=== PATIENT | female | born 1960 | race Caucasian/White ===

== ENCOUNTER 2017-11-06 18:47 | Inpatient (IN) | payer OTHER ==
[~2017-11-06] VITALS: Ht 157.5 cm; Wt 101.8 kg
[2017-11-06] MEDS ORDERED: ABILIFY5 M1 PO (20:20)
[2017-11-06 20:48] LABS: BASOPHIL % 0.2 % (0-2); PLATELET COUNT 229 x10^3mcL (130-400); RED CELL DISTRIBUTION WIDTH 13.9 % (11.5-14.5)
[2017-11-06 20:50] LABS: CALCIUM 8.6 mg/dL (8.5-10.1); CARBON DIOXIDE 25.1 mmol/L (21-32); CHLORIDE SERUM 106 mmol/L (98-107); CREATININE SERUM 0.7 mg/dL (0.6-1.0); GFR1 > 60 mL/min; GLUCOSE SERUM 113 mg/dL (74-106); POTASSIUM SERUM 3.6 mmol/L (3.5-5.1); SODIUM SERUM 136 mmol/L (136-145)
[2017-11-06 20:55] LABS: ALBUMIN 3.4 g/dL (3.4-5.0); ALKALINE PHOSPHATASE 94 U/L (46-116); ALT/SGPT 73 U/L (14-59); AST/SGOT 49 U/L (15-37); BILIRUBIN TOTAL 1.2 mg/dL (0.20-1.00); TOTAL PROTEIN, SERUM 7.3 g/dL (6.4-8.2)
[2017-11-06] MEDS ORDERED: HYDROCHLOROTH12.5 M2 (22:42)
[2017-11-06] MEDS ORDERED: METOPROLOL SUCC25 M2 (22:42)
[2017-11-06 23:48] LABS: T3 TOTAL 1.21 ng/mL
[2017-11-06 23:49] LABS: FREE T4 1.07 ng/dL (0.76-1.46); FREE THYROXINE INDEX 3.5 ug/dL (1.4-4.5); T4(THYROXINE) 11.4 ug/dL (4.7-13.3)
[2017-11-06] MEDS ORDERED: PERCOCET1 TAB PO (23:56)
[2017-11-07 00:01] VITALS: BP 172/84
[2017-11-07 00:01] LABS: CHOLESTEROL/HDL RATIO 4.2; MAGNESIUM 2.1 mg/dL (1.8-2.4); PHOSPHOROUS 3.2 mg/dL (2.5-4.9)
[2017-11-07 00:07] VITALS: Ht 157.5 cm; Wt 101.8 kg
[2017-11-07 00:59] LABS: UA SPECIFIC GRAVITY 1.025 (1.005-1.035); microscopic required? YES; urine erythrocyte TRACE (NEGATIVE)
[2017-11-07 01:05] LABS: AMPHETAMINE QUAL UR NONE DETECTED (NEG <=1000)
[2017-11-07 05:38] VITALS: BP 153/81
[2017-11-07 08:10] LABS: BASOPHIL % 0.2 % (0-2); PLATELET COUNT 218 x10^3mcL (130-400); RED CELL DISTRIBUTION WIDTH 14.1 % (11.5-14.5)
[2017-11-07 08:38] LABS: CALCIUM 8.8 mg/dL (8.5-10.1); CARBON DIOXIDE 26.9 mmol/L (21-32); CHLORIDE SERUM 105 mmol/L (98-107); CREATININE SERUM 0.9 mg/dL (0.6-1.0); GFR1 > 60 mL/min; GLUCOSE SERUM 148 mg/dL (74-106); MAGNESIUM 2.4 mg/dL (1.8-2.4); PHOSPHOROUS 3.4 mg/dL (2.5-4.9); POTASSIUM SERUM 4.5 mmol/L (3.5-5.1); SODIUM SERUM 141 mmol/L (136-145)
[2017-11-07 08:44] VITALS: BP 123/78
[2017-11-07 17:49] VITALS: BP 148/73
[2017-11-07 20:48] VITALS: BP 157/88
[2017-11-08 05:29] VITALS: BP 133/68
[2017-11-08 06:15] LABS: BASOPHIL % 0.2 % (0-2); PLATELET COUNT 237 x10^3mcL (130-400); RED CELL DISTRIBUTION WIDTH 14.1 % (11.5-14.5)
[2017-11-08 06:17] LABS: CALCIUM 8.8 mg/dL (8.5-10.1); CARBON DIOXIDE 28.7 mmol/L (21-32); CHLORIDE SERUM 105 mmol/L (98-107); CREATININE SERUM 0.8 mg/dL (0.6-1.0); GFR1 > 60 mL/min; GLUCOSE SERUM 119 mg/dL (74-106); MAGNESIUM 2.2 mg/dL (1.8-2.4); PHOSPHOROUS 3.5 mg/dL (2.5-4.9); POTASSIUM SERUM 4.4 mmol/L (3.5-5.1); SODIUM SERUM 141 mmol/L (136-145)
[2017-11-08 09:02] VITALS: BP 135/60
[2017-11-08 17:04] VITALS: BP 129/53
[2017-11-08 21:14] VITALS: BP 118/56
[2017-11-09 05:29] VITALS: BP 117/66
[2017-11-09 08:26] LABS: MAGNESIUM 1.9 mg/dL (1.8-2.4); PHOSPHOROUS 3.2 mg/dL (2.5-4.9)
[2017-11-09 09:48] VITALS: BP 155/75
[2017-11-09 15:31] VITALS: BP 155/75
[2017-11-09] MEDS ORDERED: NEU300 PO (16:01)
[2017-11-09] MEDS ORDERED: NOR10T PO (16:01)
[2017-11-09] MEDS ORDERED: FLE10 PO (16:02)
[2017-11-09] MEDS ORDERED: ZOFI IV (16:02)
== END 2017-11-09 19:29 | disposition home or self-care (01) | DRG 537 ==
LOC: ED 18:47 → DU 22:30 → MU 22:30 → DU 23:45 → MU 23:48
PROVIDERS: Emergency Medicine; Family Medicine
DX: S76.912A Strain of unspecified muscles, fascia and tendons at thigh level, left thigh, initial encounter (principal); Z68.42 Body mass index [BMI] 45.0-49.9, adult; S76.911A Strain of unspecified muscles, fascia and tendons at thigh level, right thigh, initial encounter; S83.512A Sprain of anterior cruciate ligament of left knee, initial encounter; M51.26 Other intervertebral disc displacement, lumbar region; I10 Essential (primary) hypertension; R74.0 Nonspecific elevation of levels of transaminase and lactic acid dehydrogenase [LDH]; E80.6 Other disorders of bilirubin metabolism; E78.5 Hyperlipidemia, unspecified; E66.01 Morbid (severe) obesity due to excess calories; W18.39XA Other fall on same level, initial encounter; Y93.E1 Activity, personal bathing and showering; Y92.012 Bathroom of single-family (private) house as the place of occurrence of the external cause; D72.829 Elevated white blood cell count, unspecified; F43.9 Reaction to severe stress, unspecified
CPT/HCPCS: 83880; 84439; 97116-GP; 97530-GP; 97535-GP; J1100; J2405; J2800; J2930; J3010; J3490; J7030; J7040; Q0092